=== PATIENT | female | born 1975 | race African-American/Black ===

== ENCOUNTER → 2018-05-01 | Outpatient (CLI) | payer OTHER ==
--- NOTE | 2018-05-01 16:56 | KCIC ---
MRI left knee without contrast dated 05/01/2018 4:15 PM Indication: Knee pain medial and lateral pain , swelling. Comparison: No comparison is available. Technique: Routine multiplanar multisequence imaging performed. . Findings: Bone marrow signal is homogeneous. No marrow edema. Mild tricompartmental hypertrophic change with thinning and surface irregularity of the articular cartilage throughout. No full-thickness cartilage defect. There is near full-thickness chondral is loss at the trochlear groove. Small joint effusion. No intra-articular loose body. Tiny popliteal cyst. Anterior cruciate and posterior cruciate ligaments intact. Medial and lateral collateral complexes intact. Iliotibial band, popliteus tendon and pes anserine complex within normal limits. Quadriceps and patellar tendon are intact. No abnormality of the medial or lateral retinaculum. Both menisci are normal in morphology and signal. No articular surface tear or para meniscal cyst. IMPRESSION: 1. No evidence of internal derangement. 2. Mild tricompartmental degenerative arthrosis and chondromalacia. 3. Small joint effusion and tiny popliteal cyst.. Electronically signed by: Paulo Shea MD (05/01/2018 4:52 PM) [id number]
== END | disposition home or self-care (01) ==
LOC: KCIC MRI 15:39
PROVIDERS: ATTEND Family Medicine
DX: M17.12 Unilateral primary osteoarthritis, left knee (principal); M94.262 Chondromalacia, left knee
CPT/HCPCS: 73721